=== PATIENT | male | born 1960 | race Two or more races ===

== ENCOUNTER 2016-09-29 14:25 | Emergency (ER) | payer MEDICARE, OTHER ==
[~2016-09-29] VITALS: Ht 167.6 cm; Wt 99.8 kg
--- NOTE | 2016-09-29 14:33 | NUR ---
PT BIB SELF W AT BEDSIDE CC RIGHT SIDE FLANK/LOWER BACK PAIN X 2 DAYS. PLACED PT ON MONITOR . VSS
--- NOTE | 2016-09-29 15:00 | NUR ---
RAC #18 IV ACCESS BLOOD SAMPLE COLLECTED SENT TO LAB
[2016-09-29] MEDS ORDERED: IV NS 0.9% 1,000 ML ONE (15:05)
[2016-09-29] MEDS ORDERED: ONDANSETRON HCL/PF 4 MG/2 ML VIAL ONE (15:05)
[2016-09-29] MEDS ORDERED: IV SET PRIMARY PUMP SET 1 EA INFUS.SET MC ONE (15:05)
[2016-09-29] MEDS ORDERED: MORPHINE SULFATE INJ 4 MG/ML DISP.SYRIN ONE (15:05)
[2016-09-29 15:13] LABS: BASOPHILS # (AUTO) 0.1 /CMM (0.0-0.2); BASOPHILS % (AUTO) 0.8 % (0.0-2.0); EOSINOPHILS # (AUTO) 0.4 /CMM (0.0-0.7); EOSINOPHILS % (AUTO) 5.5 % (0.0-6.0); HEMATOCRIT 42 % (39-51); HEMOGLOBIN 13.9 g/dL (13.5-17.5); LYMPHOCYTES # (AUTO) 1.9 /CMM (0.8-4.8); LYMPHOCYTES % (AUTO) 26.4 % (20.0-44.0); MEAN CORPUSCULAR HEMOGLOBIN 29 PG (26.0-33.0); MEAN CORPUSCULAR HGB CONC 33 g/dl (31.0-36.0); MEAN CORPUSCULAR VOLUME 86 fL (80-96); MONOCYTES # (AUTO) 0.4 /CMM (0.1-1.30); MONOCYTES % (AUTO) 5.6 % (2.0-12.0); NEUTROPHILS # (AUTO) 4.4 /CMM (1.8-8.9); NEUTROPHILS % (AUTO) 61.7 % (43.0-81.0); PLATELET COUNT (AUTO) 159 /CMM (150-450); RDW COEFFICIENT OF VARIATION 13.3 (11.5-15.0); RED BLOOD CELL COUNT(AUTO) 4.84 MIL/uL (4.5-6.0); WHITE BLOOD COUNT (AUTO) 7.2 K/uL (4.3-11.0)
[2016-09-29 15:22] LABS: CREATININE 1.1 mg/dL (0.6-1.3); POTASSIUM 4.2 mmol/L (3.5-5.1)
[2016-09-29] MEDS: MORPHINE SULFATE INJ 2 MG/ML DISP.SYRIN IV ONE (15:22)
[2016-09-29] MEDS: IV NS 0.9% 1,000 ML BAG IV ONE (15:22)
[2016-09-29] MEDS: ONDANSETRON HCL/PF 4 MG/2 ML VIAL IVP ONE (15:23)
[2016-09-29 15:29] LABS: ALBUMIN 3.5 g/dL (3.4-5.0); BILIRUBIN,DIRECT 0.1 mg/dL (0.0-0.2); BILIRUBIN,TOTAL 0.3 mg/dL (0.2-1.0); TOTAL PROTEIN, SERUM 7.2 g/dL (6.4-8.2)
[2016-09-29] MEDS ORDERED: IV NS 0.9% 250 ML IV ONE (15:40)
[2016-09-29] MEDS ORDERED: IOHEXOL-300 100 ML VIAL IV ONE (15:40)
[2016-09-29] MEDS ORDERED: CT SWABBABLE VALVE TRANS SET 1 EA INFUS.SET MC ONE (15:40)
--- NOTE | 2016-09-29 15:48 | NUR ---
PT TAKEN TO CT VIA W/C
[2016-09-29] MEDS ORDERED: KETOROLAC TROMETHAMINE INJ 30 MG/ML VIAL ONE (16:58)
[2016-09-29] MEDS ORDERED: DIAZEPAM 5 MG/ML 2 ML DISP.SYRIN ONE (17:00)
[2016-09-29] MEDS: DIAZEPAM 5 MG/ML 2 ML DISP.SYRIN IM ONE (17:12)
[2016-09-29] MEDS: KETOROLAC TROMETHAMINE INJ 30 MG/ML VIAL IV ONE (17:12)
[2016-09-29 17:14] VITALS: BP 140/83
--- NOTE | 2016-09-29 17:21 | NUR ---
IV removed. Catheter intact and site benign. Pressure and 4x4 applied to site. No bleeding noted. Patient discharged to home in stable condition. Written and verbal after care instructions given. Patient verbalizes understanding of instruction. Prescription given to patient.
[2016-09-29 17:23] LABS: APPEARANCE,URINE Clear (CLEAR); BILIRUBIN,URINE Negative (NEGATIVE); BLOOD, URINE Negative Ery/uL (NEGATIVE); COLOR,URINE Yellow (YELLOW); KETONES,URINE Negative (NEGATIVE); LEUKOCYTE ESTERASE ,URINE Negative (NEGATIVE); NITRITE, URINE Negative (NEGATIVE); PROTEIN,URINE Negative (NEGATIVE); UGLUCOSE Negative (NEGATIVE); UROBILINOGEN,URINE 0.2 EU/dL (0.2)
== END 2016-09-29 17:22 | disposition home or self-care (01) ==
LOC: ER 14:45
DX: M54.5 Low back pain (principal); E78.00 Pure hypercholesterolemia, unspecified; Z88.1 Allergy status to other antibiotic agents
CPT/HCPCS: 36415; 74160; 80048; 80076; 81001; 83690; 85025; 87086; 93005; 96360; 96374; 96375; 99285; A4606; J1885; J2270; J2405; J3360; J7030; J7050; Q9967; 81000-TC; Z7610

== ENCOUNTER 2020-07-16 12:32 | Emergency (ER) | payer MEDICARE, OTHER ==
[~2020-07-16] VITALS: Ht 165.1 cm; Wt 95.3 kg
[2020-07-16 12:41] VITALS: BP 152/76
[2020-07-16] MEDS ORDERED: diphenhydrAMINE HCL 50 MG CAPSULE ONE (13:10)
[2020-07-16] MEDS ORDERED: FAMOTIDINE (20 MG) 20 MG TABLET ONE (13:11)
[2020-07-16] MEDS ORDERED: predniSONE 20 MG TABLET ONE (13:11)
[2020-07-16] MEDS: predniSONE 10 MG TABLET PO ONE (13:17)
[2020-07-16] MEDS: FAMOTIDINE (20 MG) 20 MG TABLET PO ONE (13:17)
[2020-07-16] MEDS: diphenhydrAMINE HCL 50 MG CAPSULE PO ONE (13:17)
--- NOTE | 2020-07-16 13:19 | NUR ---
MEDICATED ORDERED. PT DISCHARGE IN STABLE CONDITION.
== END 2020-07-16 13:20 | disposition home or self-care (01) ==
LOC: ER 12:34
DX: T78.1XXA Other adverse food reactions, not elsewhere classified, initial encounter (principal); R60.9 Edema, unspecified; E78.00 Pure hypercholesterolemia, unspecified; Z98.890 Other specified postprocedural states; Z88.8 Allergy status to other drugs, medicaments and biological substances; X58.XXXA Exposure to other specified factors, initial encounter
CPT/HCPCS: 99284; J7512; Q0163

== ENCOUNTER 2020-09-17 17:43 | Emergency (ER) | payer MEDICARE, OTHER ==
[~2020-09-17] VITALS: Ht 162.6 cm; Wt 99.8 kg
--- NOTE | 2020-09-17 17:58 | NUR ---
CALLED PT IN [place], NO ANSWER.
--- NOTE | 2020-09-17 18:31 | NUR ---
BIBWIFE SWOLLEN LOWER LIP, POSS ALLERGIC REACTION, TO ER BED 10 , HOOKED MONITOR, CHANGED TO HOSP GOWN, WARM BLANKET PROVIDED, PATIENT AAO x 4, NAD NOTED. AWAITING MD ZAVALA.
--- NOTE | 2020-09-17 18:34 | NUR ---
АЛЕКСАНДР WARNER AT BEDSIDE
--- NOTE | 2020-09-17 18:38 | NUR ---
Cassy ricks in [facility] - 09/17/[address] YOO AT BEDSIDE
[2020-09-17] MEDS ORDERED: diphenhydrAMINE HCL 25 MG CAPSULE PO ONE (19:00)
[2020-09-17] MEDS ORDERED: FAMOTIDINE (20 MG) 20 MG TABLET PO ONE (19:00)
[2020-09-17] MEDS ORDERED: predniSONE 20 MG TABLET PO ONE (19:00)
[2020-09-17] MEDS ORDERED: diphenhydrAMINE HCL 25 MG CAPSULE ONE (19:03)
[2020-09-17] MEDS ORDERED: predniSONE 20 MG TABLET ONE (19:04)
[2020-09-17] MEDS ORDERED: FAMOTIDINE (20 MG) 20 MG TABLET ONE (19:04)
[2020-09-17] MEDS ORDERED: FAMO-131 PO (19:31)
[2020-09-17] MEDS ORDERED: EPIN0.3P3 IJ (19:31)
[2020-09-17] MEDS ORDERED: DIPH25CA83 PO (19:31)
[2020-09-17] MEDS ORDERED: PRED20TA PO (19:31)
--- NOTE | 2020-09-17 19:37 | NUR ---
Patient discharged to home in stable condition. Written and verbal after care instructions given. Patient verbalizes understanding of instruction.
[2020-09-17 19:38] VITALS: BP 149/82
== END 2020-09-17 19:38 | disposition home or self-care (01) ==
LOC: ER 17:48
DX: T78.1XXA Other adverse food reactions, not elsewhere classified, initial encounter (principal); E78.00 Pure hypercholesterolemia, unspecified; Z86.718 Personal history of other venous thrombosis and embolism; Z88.1 Allergy status to other antibiotic agents; Z79.899 Other long term (current) drug therapy; X58.XXXA Exposure to other specified factors, initial encounter
CPT/HCPCS: 99284; J7512; Q0163